=== PATIENT | female | born 1965 | race Caucasian/White ===

== ENCOUNTER 2018-05-08 06:29 | Day surgery (SDC) | payer BC ==
[2018-05-08 07:06] VITALS: BMI 28.2
[2018-05-08] MEDS ORDERED: MIDAZOLAM HCL 2 MG/2 ML SINGLE DOSE VIAL ONE (07:16)
[2018-05-08] MEDS ORDERED: SUCCINYLCHOLINE CHLORIDE 200 MG/10 ML VIAL ONE (07:16)
[2018-05-08] MEDS ORDERED: fentaNYL CITRATE 250 MCG/5 ML VIAL ONE (07:16)
[2018-05-08] MEDS ORDERED: ROCURONIUM BROMIDE 50 MG/5 ML VIAL ONE (07:16)
[2018-05-08] MEDS ORDERED: PROPOFOL 20 ML ONE ×2 (07:16)
[2018-05-08] MEDS ORDERED: ceFAZolin SODIUM 1 GM VIAL ONE (07:22)
[2018-05-08] MEDS ORDERED: DEXAMETHASONE SOD PHOSPHATE 4 MG/1 ML VIAL ONE ×2 (07:22→10:46)
[2018-05-08] MEDS ORDERED: ONDANSETRON 4 MG/2 ML VIAL ONE ×2 (07:22→10:46)
[2018-05-08] MEDS ORDERED: HYDROmorphone HCL/PF 1 MG/ML VIAL (FOR PYXIS CHARGING ONLY) ONE (11:28)
[2018-05-08] MEDS ORDERED: ONDANSETRON 4 MG/2 ML VIAL IVPUSH PRN (12:14)
[2018-05-08] MEDS ORDERED: oxyCODONE HCL 5 MG TABLET PO PRN ×2 (12:14)
[2018-05-08] MEDS ORDERED: LACTATED RINGERS SOLUTION 1,000 ML IV SCH (12:15)
--- NOTE | 2018-05-08 12:18 | OP ---
Operative Note - Note: Operative Date: 05/08/18 Pre-Operative Diagnosis: BRACA positive via genetic testing Operation: Breast reduction for nipple delay/staged prophylaxtic mastectomy Post-Operative Diagnosis: Same as Pre-op Surgeon: Petros Velázquez Network Associate: Neisha Galan Anesthesiologist/AIRCRAFT CLEANING SUPERVISOR: Bella Montoya Anesthesia: General Specimens Removed: right and left breast tissue Estimated Blood Loss (mls): 50 Drains & Tubes with Location: Joann drain at right lateral breast. Laguna drain at left lateral breast Fluid Volume Replaced (mls): 1,600 Operative Report Dictated: Yes
--- NOTE | 2018-05-08 12:19 | OP ---
Operative Note - Note: Operative Date: 05/08/18 Pre-Operative Diagnosis: BRCA+ Genetic Susceptibility to Breast Cancer, Bilateral Breast Ptosis Operation: Bilateral Breast Reduction as Staged Mastectomy and Reconstruction Post-Operative Diagnosis: Same as Pre-op Surgeon: Petros Velázquez Rn New Graduate: Neisha Galan Anesthesia: General Specimens Removed: Breast Tissue Left-598 gms, Right-512 gms Estimated Blood Loss (mls): 100 Drains & Tubes with Location: Joann Drain Each Breast Operative Report Dictated: Yes
--- NOTE | 2018-05-08 12:20 | SURG ---
Surgery Sew Out Operator Note Sew Out Operator: Neisha Galan PA-C Date of Service: 05/08/18 Diagnosis: Pre-Operative Diagnosis: BRCA+ Genetic Susceptibility to Breast Cancer, Bilateral Breast Ptosis Procedure: Bilateral Breast Reduction as Staged Mastectomy and Reconstruction I was present for the entirety of the operative procedure. For further detail, please refer to operative report. Visit type - Case Type Case Type: Scheduled - New patient This patient is new to me today: Yes Date on this admission: 05/08/18
--- NOTE | 2018-05-08 13:41 | OP ---
DATE OF OPERATION: 05/08/2018 PREOPERATIVE DIAGNOSIS: BRCA positive genetic susceptibility to breast cancer with bilateral breast ptosis. POSTOPERATIVE DIAGNOSIS: BRCA positive genetic susceptibility to breast cancer with bilateral breast ptosis. PROCEDURE PERFORMED: Bilateral breast reduction as staged mastectomy and reconstruction. SURGEON: Petros Velázquez MD COLLET MAKING MACHINE OPERATOR: JESSICA Slade ANESTHESIA: General via endotracheal tube. BRIEF HISTORY: The patient is a 53-year-old female who has a family history of breast and ovarian cancer and who is BRCA positive on genetic testing. She presented for a plan for both her mastectomies and reconstructions, and as the patient is severely ptotic and not typically a candidate for nipple-sparing procedure, she elected to delay her complete treatment in order to attempt to stage her reconstruction and elevate her nipple areolar complexes preoperatively. This delayed procedure is being performed with the intention of completing the mastectomy in approximately 6 to 9 months. DESCRIPTION OF PROCEDURE: The patient was placed on the operating table in supine position, and general anesthesia was administered by the anesthesiologist. The area of the chest was prepped and draped in the usual sterile fashion. The patient was marked preoperatively in the standing position, and these markings were now used as a guide for surgery. The right breast was addressed first. A tourniquet was placed at the base of the right breast, and a 42-mm cookie-cutter was used to outline a circular incision about the right nipple areolar complex. All incisions were made as marked with a No. 15 scalpel blade, and a 6-cm wide inferiorly based pedicle was designed. The pedicle was deepithelialized, and the pedicle was developed with dissection down to much of the fascia both laterally, medially, and superiorly. Excess tissue in these 3 quadrants was removed, and the total resection on the right breast was 598 g. Hemostasis was achieved with the electrocautery, and flaps had been created removing all visible breast tissue in these 3 quadrants as with mastectomy. The only breast tissue remaining was the pedicle itself. A 0.5-inch Joann drain was placed and exited the inframammary wound laterally. Wounds were then tacked closed using 2-0 silk suture at dow points, and then closed in layered fashion. Deep tissues were closed with No. 3-0 and 4-0 Biosyn sutures in interrupted buried fashion. Skin was then closed with intradermal 4-0 Biosyn suture and [id number] 5-0 nylon sutures. All wounds were then secured with Steri-Strips. A similar procedure was performed on the left breast, and total resection was 512 g. At the conclusion of the procedure, sterile dressings were then applied and secured with a surgical bra. Patient was then awoken from anesthesia without any difficulty and taken from the operating room to the recovery room in satisfactory condition having tolerated the procedure well. Emilie VAN/[id number]
[2018-05-08 17:38] VITALS: BP 124/75; PULSE 70; TEMP 97.9
--- NOTE | 2018-05-11 12:59 | PATH ---
Surgical Pathology Report Patient Name: WARD RAMSEY [facility]. Rec. #: [id number] /Age/Gender: 1965 (Age: 53) / F Account: [id number] Location: [facility] Taken: 05/08/2018 Received: 05/08/2018 Reported: 05/11/2018 Physicians: Petros Velázquez M.D. Specimen(s) Received A: RIGHT BREAST TISSUE B: LEFT BREAST TISSUE Clinical History None given Final Diagnosis A. BREAST TISSUE, RIGHT, EXCISION: BENIGN BREAST TISSUE. SKIN WITH NO PATHOLOGIC FINDINGS. B. BREAST TISSUE, LEFT, EXCISION: BENIGN BREAST TISSUE. SKIN WITH NO PATHOLOGIC FINDINGS. Electronically Signed Neisha Kaplan M.D. Gross Description A. Received in formalin labeled "right breast tissue," is a 627 g, 24.0 x 12.0 x 4.4 cm portion of fibroadipose tissue with a short suture marking the superior aspect and a long suture marking the medial aspect of the specimen, per the surgeon. The anterior surface displays multiple portions of almaraz, unremarkable skin. There is no needle localization wire present. The anterior soft tissue is inked blue and the deep margin is inked black. The specimen is serially sectioned from lateral to medial. Sectioning reveals foci of white fibrous tissue. Gift Packer sections are submitted in 9 cassettes as follows 1-2- deep margin; 3-skin; 3-9-msmmioid margin; 6-inferior margin; 7-medial margin; 8-9-lateral margin. B. Received in formalin labeled "left breast tissue," is a 538 g, 19.0 x 11.5 x 5.0 cm portion of fibroadipose tissue with a short suture marking the superior and sent and a long suture marking the lateral aspect of the specimen, per the surgeon. The anterior surface displays a almaraz, irregular, unremarkable portion of skin. There is no needle localization wire present. The anterior soft tissue margin is inked blue and the deep margin is inked black. The specimen is serially sectioned from medial to lateral. Sectioning reveals foci of white fibrous tissue. Gift Packer sections are submitted in 9 cassettes as follows: 1-2-deep margin; 3-skin; 3-0-aaqixjos margin; 8-4-bjqwmihp margin; 8-medial margin; 9-lateral margin. Time to formalin fixation: 30 minutes Total formalin fixation time: Approximately 32 hours. 05/09/2018 [facility]05/09/2018
== END 2018-05-08 15:35 | disposition home or self-care (01) ==
LOC: FASU 06:29
PROVIDERS: ATTEND Plastic Surgery
PROC: 0HBV0ZZ Excision of Bilateral Breast, Open Approach (ICD-10-PCS; principal; 2018-05-08 08:50)
DX: Z15.01 Genetic susceptibility to malignant neoplasm of breast (principal); N64.81 Ptosis of breast; Z80.3 Family history of malignant neoplasm of breast
CPT/HCPCS: 88305-TC; 94760